=== PATIENT | male | born 1960 | race Caucasian/White ===

== ENCOUNTER → 2016-12-03 | Outpatient (CLI) | payer BC ==
[~2016-12-03] MED LIST: ASPIRIN; ASPIRIN PO; AVAPRO PO; CLARITIN10 MG; CLARITIN10 MG PO; CRESTOR PO; DIOVAN HCT 160-1 TAB PO; DIOVAN HCT 160/1 TAB PO; DIOVAN PO; FLEXERIL PO; HYDROCODONE-APA1 T30; LEXAPRO PO; MAVIK4 MG; MEDROL DOSEPAK4 MG PO; NEXIUM PO; PERCOCET5/325 PO; SKELAXIN; VANTIN200 MG PO; VICODIN PO
--- NOTE | ~2016-12-03 | CR63 ---
[facility] A Service of [facility] & [facility] RADIOLOGY TEXT RESULTS PATIENT: ADALGISA LOZADA LOCATION: [facility] : 64 UNIT #: [id number] AGE: [address]: Omayra Orozco MD SEX: M ORDER DR: [id number] [facility] [address]. [place], [place] [address] [id number] O MR#: [id number] Acc #: [id number] NAME: ADALGISA LOZADA : 1960 SEX: M STUDY DATE/TIME: 12/03/2016 9:40 UNIT: [facility] ROOM: STUDY DESCRIPTION: CR Chest 2 View Attending Physician: Omayra Orozco M.D. Referring Physician: Omayra Orozco M.D. Ordering Physician: Omayra Orozco M.D. Primary Care Physician: Omayra Orozco M.D. MEDICAL IMAGING REPORT This report is preliminary unless electronic signature is present EXAM Chest x-ray, 12/03/2016. HISTORY Cold, cough, congestion for 2 weeks. COMPARISON 2 views of the chest are compared with 07/29/2016. FINDINGS Lung volumes are low, but the lungs are clear. Cardiac and mediastinal contours are within normal limits. No pneumothorax. IMPRESSION Low volume inspiration, but no active disease is identified. Dictated by... Luke Dick Jr., M.D. THIS IS AN ELECTRONICALLY VERIFIED REPORT Luke Dick Jr., M.D. at 12/03/2016 1:37 PM MAGGY/katina TD: 12/03/2016 12:41 JOB #: [id number] MEDICAL IMAGING REPORT Page 1 of 1 COPY
== END | disposition home or self-care (01) ==
LOC: CRAD 09:02
DX: R05 Cough (principal); J00 Acute nasopharyngitis [common cold]; R09.89 Other specified symptoms and signs involving the circulatory and respiratory systems
CPT/HCPCS: 71020

== ENCOUNTER → 2016-12-12 | Outpatient (CLI) | payer BC ==
--- NOTE | ~2016-12-12 | CR63 ---
[facility] A Service of [facility] RADIOLOGY TEXT RESULTS PATIENT: ADALGISA LOZADA LOCATION: [facility] : 64 UNIT #: [id number] AGE: [address]: Abram Young MD SEX: M ORDER DR: [id number] [facility] [address] [place], [place] [address] [id number] O MR#: [id number] Acc #: [id number] NAME: ADALIGSA LOZADA. : 1960 SEX: M STUDY DATE/TIME: 12/12/2016 14:52 UNIT: [facility] ROOM: STUDY DESCRIPTION: CR Chest 2 View Attending Physician: Abram Young M.D. Referring Physician: Abram Young M.D. Ordering Physician: Abram Young M.D. Primary Care Physician: Omayra Orozco M.D. MEDICAL IMAGING REPORT This report is preliminary unless electronic signature is present EXAM Chest, PA and lateral. DATE OF EXAM 12/12/2016 HISTORY Renal mass, status post mass removal June 2016. Benign essential hypertension, COPD, asthma and diabetes. Observation for metastatic disease. FINDINGS PA and lateral examination of the chest upright shows a good expansion of the parenchyma with a normal distribution of the pulmonary vascularity. There is no indication of congestion, effusion, infiltrate, tumor, or nodular density. The pleural reflections and diaphragmatic contours are normal. The cardiac silhouette and mediastinal anatomy is within normal limits. IMPRESSION Normal PA and lateral chest. Dictated by... Francisco Mccormick M.D. THIS IS AN ELECTRONICALLY VERIFIED REPORT Francisco Mccormick M.D. at 12/13/2016 8:06 AM BARBARA/jacoby TD: 12/12/2016 19:54 [facility] A Service of [facility] & [facility] RADIOLOGY TEXT RESULTS PATIENT: ADALGISA LOZADA LOCATION: [facility] : 64 UNIT #: [id number] AGE: [address]: Abram Young MD SEX: M ORDER DR: JOB #: [id number] MEDICAL IMAGING REPORT Page 1 of 1 COPY
[2016-12-12 15:12] LABS: ALBUMIN SERUM 3.9 g/dL (3.5-5.0); BILIRUBIN,TOTAL 0.6 mg/dL (0.2-2.0); BUN/CREATININE RATIO 21.81; CALCIUM SERUM 9.1 mg/dL (8.4-10.2); CREATININE SERUM 1.1 mg/dL (0.6-1.4); GLOM FILT RATE Estimated 75.7 mL/min (>60); POTASSIUM 3.4 mmol/L (3.5-5.1); PROTEIN TOTAL SERUM 7.3 g/dL (6.0-8.3)
[2016-12-12 15:33] LABS: HEMOGLOBIN 15.8 gm/dL (13.0-16.0); MEAN CELL VOLUME 86.4 FL (83-96); MEAN CORPUSCULAR HEMOGLOBIN 27.9 PG (28-34); MEAN CORPUSCULAR HGB CONC 32.3 g/dL (30-36); MEAN PLATELET VOLUME 8.3 FL (6.5-11.5); RED BLOOD COUNT 5.67 X10e (3.90-5.60); RED CELL DISTRIBUTION WIDTH 14.6 % (11.0-15.5); WHITE BLOOD COUNT 27.8 X10e3 (4.0-10.5)
[2016-12-12 16:11] LABS: POC - CREATININE 1.46 mg/dL (0.64-1.27)
== END | disposition home or self-care (01) ==
LOC: CRAD 14:10
PROVIDERS: Urology
DX: N28.89 Other specified disorders of kidney and ureter (principal)
CPT/HCPCS: 36415; 71020; 80053; 82565; 85027

== ENCOUNTER → 2016-12-13 | Outpatient (CLI) | payer BC ==
--- NOTE | ~2016-12-13 | CT3 ---
[facility] A Service of [facility] & [facility] RADIOLOGY TEXT RESULTS PATIENT: ADALGISA LOZADA LOCATION: [facility] : 64 UNIT #: [id number] AGE: [address]: Abram Young MD SEX: M ORDER DR: [id number] [facility] [address] [place], [place] [address] [id number] O MR#: [id number] Acc #: [id number] NAME: ADALGISA LOZADA. : 1960 SEX: M STUDY DATE/TIME: 12/13/2016 10:23 UNIT: [facility] ROOM: STUDY DESCRIPTION: CT Abd and Pelv WWo Cont Attending Physician: Abram Young M.D. Referring Physician: Abram Young M.D. Ordering Physician: Abram Young M.D. Primary Care Physician: Omayra Orozco M.D. MEDICAL IMAGING REPORT This report is preliminary unless electronic signature is present EXAM CT of the abdomen and pelvis without and with contrast. HISTORY Renal cell carcinoma. The patient was diagnosed with renal cell carcinoma on the left in May 2016. Patient otherwise a partial nephrectomy on the left in June 2016. TECHNIQUE Axial precontrast imaging was performed through the kidneys. This was followed by arterial phase imaging through the kidneys, 90-second delayed phase imaging through the abdomen and pelvis and 3-minute delayed phase imaging through the kidneys. This CT exam was performed with one or more of the following radiation dose reduction techniques: automatic exposure control, adjustment of mA and/or kV according to patient size, and iterative reconstruction. FINDINGS Images through the lung bases are clear. There are postsurgical changes involving the superior pole of the left kidney. This area measures up to 1.7 x 2.3 cm, and I do not think shows any significant enhancement. This is again favored to be postsurgical changes rather than any residual or recurrent disease. Certainly, attention to it on subsequent follow-up exams is recommended. There is an apparent cyst arising from the inferior pole of the left kidney. No solid or cystic renal masses are seen on the right. This patient does have single renal arteries bilaterally, and there are single renal collecting systems bilaterally. The urinary bladder is grossly unremarkable. The patient does have diffuse hepatic steatosis and hepatomegaly with the STS. [facility] A Service of [facility] RADIOLOGY TEXT RESULTS PATIENT: ADALGISA LOZADA LOCATION: [facility] : 64 UNIT #: [id number] AGE: [address]: Abram Young MD SEX: M ORDER DR: liver measuring up to 19 cm in craniocaudal dimension. The pancreas appears normal, as does the gallbladder. Adrenal glands are within normal limits. I do not see any suspicious retroperitoneal adenopathy. The prostate gland is within normal limits. There is a small fat-containing left inguinal hernia. Review of bony windows does not demonstrate any aggressive osseous abnormalities. IMPRESSION 1. Postsurgical changes involving superior pole of the left kidney with an area of nodularity measuring up to 2.3 x 1.7 cm. I do not think this shows any significant enhancement and is favored to represent normal postoperative change. However, I would suggest a short-term follow-up to document continuing stability. There is also an apparent cyst seen within the inferior pole of the left kidney. No solid or cystic renal masses are seen on the right. 2. Hepatomegaly and diffuse hepatic steatosis. 3. Please see the body of the report for any other additional incidental findings. Dictated by... Loli Negrete M.D. THIS IS AN ELECTRONICALLY VERIFIED REPORT Loli Negrete M.D. at 12/16/2016 5:10 PM MARIE/katina TD: 12/13/2016 17:31 JOB #: [id number] MEDICAL IMAGING REPORT Page 1 of 1 COPY
== END | disposition home or self-care (01) ==
LOC: CCAT 08:22
DX: N28.89 Other specified disorders of kidney and ureter (principal); K76.0 Fatty (change of) liver, not elsewhere classified; R16.0 Hepatomegaly, not elsewhere classified; Z98.890 Other specified postprocedural states
CPT/HCPCS: 74178; 96360; 96361; Q9967

== ENCOUNTER → 2017-04-17 | Outpatient (CLI) | payer BC ==
--- NOTE | ~2017-04-17 | CT3 ---
[facility] A Service of [facility] & [facility] RADIOLOGY TEXT RESULTS PATIENT: ADALGISA LOZADA LOCATION: [facility] : 64 UNIT #: [id number] AGE: [address]: Abram Young MD SEX: M ORDER DR: [id number] [facility] [address] [place], [place] [address] [id number] O MR#: [id number] Acc #: [id number] NAME: ADALGISA LOZADA : 1960 SEX: M STUDY DATE/TIME: 04/17/2017 10:47 UNIT: [facility] ROOM: STUDY DESCRIPTION: CT Abd and Pelv WWo Cont Attending Physician: Abram Young M.D. Referring Physician: Abram Young M.D. Ordering Physician: Abram Young M.D. Primary Care Physician: Omayra Orozco M.D. MEDICAL IMAGING REPORT This report is preliminary unless electronic signature is present EXAM CT abdomen without contrast, CT abdomen and pelvis with contrast. INDICATIONS Renal cell carcinoma. Follow up. Patient is status post partial left nephrectomy in June of 2016. Restaging. PROCEDURE Unenhanced CT of the abdomen. Postcontrast CT of abdomen and pelvis, multiphase acquisition through the kidneys. This CT exam was performed with one or more of the following radiation dose reduction techniques: automatic exposure control, adjustment of mA and/or kV according to patient size, and iterative reconstruction. COMPARISON 12/13/2016 FINDINGS ABDOMEN WITHOUT CONTRAST: There is a 6 mm noncalcified nodule in the right lower lobe. This level was not included on the previous study. Liver enlarged measuring 24.3 cm. Spleen measures 16 cm. No radiodense gallstones or radiodense renal calculi. ABDOMEN WITH CONTRAST: Kidneys enhance symmetrically. Partial nephrectomy change at the upper pole of the left kidney. No enhancing renal mass. No abnormal nodularity in the left perinephric fat. No pathologically enlarged retroperitoneal lymph nodes. Left renal vein is unremarkable. No liver or splenic mass. Adrenal glands, pancreas and gallbladder unremarkable. The bowel loops are nondilated. STS. [facility] A Service of [facility] & [facility] RADIOLOGY TEXT RESULTS PATIENT: ADALGISA LOZADA LOCATION: [facility] : 64 UNIT #: [id number] AGE: [address]: Abram Young MD SEX: M ORDER DR: PELVIS WITH CONTRAST: No pelvic mass or fluid. No aggressive appearing bone lesion. IMPRESSION 1. Partial nephrectomy change in the upper pole left kidney. No evidence for residual disease or metastatic disease in the abdomen or pelvis. 2. There is a 6 mm nodule in the right upper lobe. This level was not included on the comparison study. It may simply represent a benign pulmonary nodule, but recommend chest CT, or 3-6 month followup if dedicated chest CT is not pursued. Dictated by... Raza Russell M.D. THIS IS AN ELECTRONICALLY VERIFIED REPORT Raza Russell M.D. at 04/21/2017 11:07 AM GEM/jacoby TD: 04/17/2017 15:55 JOB #: [id number] MEDICAL IMAGING REPORT Page 1 of 1 COPY
--- NOTE | ~2017-04-17 | CR63 ---
[facility] A Service of [facility] RADIOLOGY TEXT RESULTS PATIENT: ADALGISA LOZADA [facility] 64 UNIT #: [id number] AGE: [address]: Abram Young MD SEX: M ORDER DR: [id number] [facility] [address] [place], [place] [address] [id number] O MR#: [id number] Acc #: [id number] NAME: ADALGISA LOZADA : 1960 SEX: M STUDY DATE/TIME: 04/17/2017 10:01 UNIT: [facility] ROOM: STUDY DESCRIPTION: CR Chest 2 View Attending Physician: Abram Young M.D. Referring Physician: Abram Young M.D. Ordering Physician: Abram Young M.D. Primary Care Physician: Omayra Orozco M.D. MEDICAL IMAGING REPORT This report is preliminary unless electronic signature is present EXAM Chest, PA and lateral, 3 views, 04/17/2017. HISTORY Renal cell carcinoma. Observation for metastatic disease. Shortness of breath on exertion since June 2016. Benign essential hypertension, COPD, diabetes and asthma. Previous smoker. FINDINGS PA and lateral examination of the chest upright shows a good expansion of the parenchyma with a normal distribution of the pulmonary vascularity. There is no indication of congestion, effusion, infiltrate, tumor, or nodular density. The pleural reflections and diaphragmatic contours are normal. The cardiac silhouette and mediastinal anatomy is within normal limits. IMPRESSION Normal chest. Dictated by... Francisco Mccormick M.D. THIS IS AN ELECTRONICALLY VERIFIED REPORT Francisco Mccormick M.D. at 04/18/2017 4:52 PM KRT/saravanan TD: 04/17/2017 13:16 JOB #: [id number] [facility] A Service of [facility] RADIOLOGY TEXT RESULTS PATIENT: ADALGISA LOZADA [facility] 64 UNIT #: [id number] AGE: [address]: Abram Young MD SEX: M ORDER DR: MEDICAL IMAGING REPORT Page 1 of 1 COPY
[2017-04-17 14:56] LABS: POC - CREATININE 1.24 mg/dL (0.64-1.27); POC - GFR >60.0 mL/min (>60)
== END | disposition home or self-care (01) ==
LOC: CRAD 09:46 → CCAT 09:46
PROVIDERS: Urology
DX: Z08 Encounter for follow-up examination after completed treatment for malignant neoplasm (principal); R91.1 Solitary pulmonary nodule; Z90.5 Acquired absence of kidney; Z85.528 Personal history of other malignant neoplasm of kidney
CPT/HCPCS: 71020; 74178; 82565; Q9967

== ENCOUNTER → 2017-05-09 | Outpatient (CLI) | payer BC ==
--- NOTE | ~2017-05-09 | CT17 ---
[facility] A Service of [facility] & [facility] RADIOLOGY TEXT RESULTS PATIENT: ADALGISA LOZADA LOCATION: [facility] : 64 UNIT #: [id number] AGE: [address]: Omayra Orozco MD SEX: M ORDER DR: [id number] [facility] [address] [place], [place] [address] [id number] O MR#: [id number] Acc #: [id number] NAME: ADALGISA LOZADA : 1960 SEX: M STUDY DATE/TIME: 05/09/2017 14:39 UNIT: [facility] ROOM: STUDY DESCRIPTION: CT Angio Head Attending Physician: Omayra Orozco M.D. Referring Physician: Omayra Orozco M.D. Ordering Physician: Omayra Orozco M.D. Primary Care Physician: Omayra Orozco M.D. MEDICAL IMAGING REPORT This report is preliminary unless electronic signature is present EXAM CT head and neck angiogram HISTORY Positional vertigo for 2.5 weeks. History of renal cell carcinoma, diabetes and hypertension. COMMENT CT angiography of the head and neck vessels was performed during the administration of 100 mL of Isovue-370. Imaging acquired in the axial plane followed by multiple reconstructed and reformatted images for the purpose of 3-D CT angiography of the head and neck vessels. This CT exam was performed with one or more of the following radiation dose reduction techniques: automatic exposure control, adjustment of mA and/or kV according to patient size, and iterative reconstruction. COMPARISON Head CT is from 05/09/2017. FINDINGS CT angiogram Neck: Bovine origin left common carotid artery. No hemodynamically-significant narrowing suspected great vessel origins from the arch. Assessment right carotid system shows mild plaque at the bifurcation but by NASCET criteria 0% stenosis is suspected. The right carotid siphons is widely patent. Assessment of the left carotid system shows mild calcified plaque at the left carotid bifurcation. By NASCET criteria 0% stenosis is suspected and the left carotid siphons widely patent. At the level of the venous [facility] A Service of [facility] & [facility] RADIOLOGY TEXT RESULTS PATIENT: ADALGISA LOZADA [id number] 64 UNIT #: [id number] AGE: [address]: Omayra Orozco MD SEX: M ORDER DR: contrast inflow, the proximal right common carotid artery is obscured. Left vertebral artery patent throughout the neck intracranially with supply to the basilar. No hemodynamically significant stenosis is suspected. Right vertebral artery patent throughout the neck intracranially. No hemodynamically significant stenosis suspected. Provides supplied to the basilar. Vertebral systems fairly codominant. Evaluation of the intracranial circulation is somewhat limited by technical factors and patient's habitus. Imaging in general is somewhat noisy/grainy. Allowing for this, there is no intracranial vascular cutoff. There is a small anterior communicating artery present. No focal central stenosis is suspected. No significant sized posterior communicator is identified. Dural venous sinuses are grossly patent. No intracranial aneurysm is suspected allowing for technical limitation of CT angiography for evaluation of aneurysm at the level skull base of the adjacent bones. Mild heterogeneity of thyroid gland noted with some asymmetric enlargement of the right side. Largest measurable lesion about 1.6 cm dimension. Recommend followup with nonemergent thyroid ultrasound. This is nonspecific. Mild mucosal disease in the left maxillary sinus. Cervical spine degenerative change noted. Emphysematous changes, mild at the apices. IMPRESSION 1. By NASCET criteria 0% stenosis at either carotid bifurcation. Both vertebral arteries are patent and fairly codominant. 2. No intracranial vascular cutoff or focal central stenosis. 3. Heterogeneous appearance of the right lobe of the thyroid gland with focal nodular density at least 1.6 cm in dimension. This is nonspecific and should be further evaluated with a non emergent thyroid ultrasound. Dictated by... Ingrid Savage M.D. THIS IS AN ELECTRONICALLY VERIFIED REPORT Ingrid Savage M.D. at 05/19/2017 4:53 PM SAC/to TD: 05/14/2017 19:21 JOB #: [id number] MEDICAL IMAGING REPORT Page 1 of 1 COPY
--- NOTE | ~2017-05-09 | CT71 ---
[facility] A Service of [facility] RADIOLOGY TEXT RESULTS PATIENT: ADALGISA LOZADA LOCATION: [facility] : 64 UNIT #: [id number] AGE: [address]: Omayra Orozco MD SEX: M ORDER DR: [id number] [facility] [address] [place], [place] [address] [id number] O MR#: [id number] Acc #: [id number] NAME: ADALGISA LOZADA : 1960 SEX: M STUDY DATE/TIME: 05/09/2017 14:33 UNIT: [facility] ROOM: STUDY DESCRIPTION: CT Head Wo Contrast Attending Physician: Omayra Orozco M.D. Referring Physician: Omayra Orozco M.D. Ordering Physician: Omayra Orozco M.D. Primary Care Physician: Omayra Orozco M.D. MEDICAL IMAGING REPORT This report is preliminary unless electronic signature is present EXAMINATION CT head without contrast. DATE 05/09/2017 HISTORY Benign essential hypertension and benign positional vertigo. Patient states positional vertigo for 2.5 weeks. Additional history of renal cell carcinoma. Partial nephrectomy. COMPARISON Noncontrast CT head, 07/03/2011. TECHNIQUE This CT exam was performed with one or more of the following radiation dose reduction techniques: automatic exposure control, adjustment of mA and/or kV according to patient size, and iterative reconstruction. FINDINGS A few of the images are mildly motion degraded. No acute intracranial hemorrhage, mass lesion, mass effect, midline shift or evidence of acute or evolving infarct. Mild mucosal thickening is demonstrated within the left maxillary sinus. Mastoid air cells are clear. Calvaria is within normal limits. Middle ear cavities appear unremarkable. IMPRESSION 1. Normal noncontrast CT head. Dictated by... Kelsi Aguilar M.D. [facility] A Service [facility] RADIOLOGY TEXT RESULTS PATIENT: ADALGISA LOZADA LOCATION: [facility] : 64 UNIT #: [id number] AGE: [address]: Omayra Orozco MD SEX: M ORDER DR: THIS IS AN ELECTRONICALLY VERIFIED REPORT Kelsi Aguilar M.D. at 05/15/2017 8:37 AM DUYEN/jacoby TD: 05/10/2017 00:07 JOB #: [id number] MEDICAL IMAGING REPORT Page 1 of 1 COPY
--- NOTE | ~2017-05-09 | CT23 ---
[facility] A Service of [facility] RADIOLOGY TEXT RESULTS PATIENT: ADALGISA LOZADA [facility] 64 UNIT #: [id number] AGE: [address]: Omayra Orozco MD SEX: M ORDER DR: [id number] [facility] [address] [place], [place] [address] [id number] O MR#: [id number] Acc #: [id number] NAME: ADALGISA LOZADA : 1960 SEX: M STUDY DATE/TIME: 05/09/2017 14:39 UNIT: [facility] ROOM: STUDY DESCRIPTION: CT Angio Neck Attending Physician: Omayra Orozco M.D. Referring Physician: Omayra Orozco M.D. Ordering Physician: Omayra Orozco M.D. Primary Care Physician: Omayra Orozco M.D. MEDICAL IMAGING REPORT This report is preliminary unless electronic signature is present EXAM CT angiogram head and neck FINDINGS Result text under order number [id number]. Please see this order for result text. Dictated by... Ingrid Savage M.D. THIS IS AN ELECTRONICALLY VERIFIED REPORT Ingrid Savage M.D. at 05/15/2017 2:51 PM SAC/to TD: 05/14/2017 19:24 JOB #: [id number] MEDICAL IMAGING REPORT Page 1 of 1 COPY
[2017-05-09 13:45] LABS: POC - CREATININE 1.29 mg/dL (0.64-1.27); POC - GFR >60.0 mL/min (>60)
== END | disposition home or self-care (01) ==
LOC: CCAT 13:03
PROVIDERS: Internal Medicine
DX: H81.10 Benign paroxysmal vertigo, unspecified ear (principal); I10 Essential (primary) hypertension
CPT/HCPCS: 70450; 70496; 70498; 82565; Q9967